=== PATIENT | male | born 1985 | race Caucasian/White ===

== ENCOUNTER 2019-09-07 16:45 | Outpatient (CLI) | payer SELFPAY ==
--- NOTE | 2019-09-07 | XR_ITS ---
WS: [id number] XR knee LT 4V [id number] REASON FOR EXAM: KNEE PAIN, LEFT FINDINGS: A metallic density is seen in the anterior aspects of the lower one third of the femur area in the soft tissue. This appears to be a metal artifact. The meniscal spaces are well preserved. The patella tibial space is normal. Patella femoral articulations normal. XR/XR knee LT 4V [id number] IMPRESSION: A metallic foreign body is seen in the soft tissue along the anterior lower one third of the femur area. The remaining knee was within normal limits.
== END 2019-09-07 16:46 | disposition home or self-care (01) ==
PROVIDERS: Family Provider Nurse Practitioner Family; PCP Nurse Practitioner Family; Visit Provider Nurse Practitioner Family
DX: M25.562 Pain in left knee (principal); M79.5 Residual foreign body in soft tissue
CPT/HCPCS: 73564

== ENCOUNTER 2019-10-06 16:37 | Outpatient (RCR) | payer SELFPAY | END 2019-11-03 23:59 | disposition home or self-care (01) | LOC: SPT 16:37 | PROVIDERS: Family Provider Nurse Practitioner Family; PCP Nurse Practitioner Family; Referring Provider Nurse Practitioner Family; Visit Provider Nurse Practitioner Family | DX: M25.562 Pain in left knee (principal) | CPT/HCPCS: 97110; 97161 ==

== ENCOUNTER 2019-11-04 06:00 | Outpatient (RCR) | payer SELFPAY | END 2019-12-04 23:59 | disposition home or self-care (01) | LOC: SPT 06:00 | PROVIDERS: Family Provider Nurse Practitioner Family; PCP Nurse Practitioner Family; Referring Provider Nurse Practitioner Family; Visit Provider Nurse Practitioner Family | DX: M25.562 Pain in left knee (principal) | CPT/HCPCS: 97110 ==

== ENCOUNTER 2019-12-05 06:00 | Outpatient (RCR) | payer OTHER, SELFPAY | END 2020-01-03 23:59 | disposition home or self-care (01) | LOC: SPT 06:00 | PROVIDERS: PCP Nurse Practitioner Family; Visit Provider Nurse Practitioner Family | DX: M25.562 Pain in left knee (principal) | CPT/HCPCS: 97110 ==

== ENCOUNTER → 2021-09-26 16:12 | Outpatient (BNVA) | payer BC, SELFPAY | PROVIDERS: Visit Provider Family Medicine Adult Medicine | DX: Z78.9 Other specified health status (principal); Z83.3 Family history of diabetes mellitus; R20.0 Anesthesia of skin | CPT/HCPCS: 80053; 83036; 84443; 85025 ==

== ENCOUNTER 2023-04-29 13:15 | Emergency (ER) | payer BC, MEDICAID, SELFPAY ==
[2023-04-29 13:52] VITALS: BP 134/82; PULSE 79; RESP 18; TEMP 36.8; O2SAT 100; BMI 26.7
--- NOTE | 2023-04-29 13:59 | ED_ITS ---
HPI - Wound/Laceration General: Chief Complaint: Wound/Laceration Stated Complaint: Cut right arm Time Seen by Provider: 04/29/23 13:58 Source: patient Mode of arrival: ambulatory Limitations: no limitations History of Present Illness: Patient is a 37-year-old male who presents to ED today with a complaint of a laceration to his right volar forearm. Patient was reportedly seen at a walk-in clinic and referred to the emergency department. Patient states he cut the forearm on glass. Last tetanus unknown. He denies numbness, tingling, loss of sensation to the extremity. Onset (ago): hour(s) Extremity Location: Right: forearm Place: home Patient tetanus UTD: No Context: accidental Associated symptoms: Reports no associated symptoms Treatments prior to arrival: bandage Review of Systems Musc: Reports: extremity pain (R forearm); Denies: neck pain, back pain, extremity swelling, joint pain, joint swelling, joint redness or joint warmth Skin/Breast: Reports: other (laceration volar mid forearm-right) Neuro: Denies: numbness in extremities or sensory changes PFS ED PFSH: Medical History Bilateral arm numbness and tingling while sleeping Cellulitis Family history of diabetes mellitus Lumbar disc disease Onychomycosis Participant in health and wellness plan Vision changes Surgical History Hx of left knee surgery Social History Smoking and tobacco/nicotine status: never used tobacco/nicotine Alcohol intake: never Substance/Drug Use: never Household members: spouse Marital status: Current occupational status: employed Physical Exam Const: COMMON NORMALS: no acute distress, average body habitus, patient oriented x3, no limitations, healthy appearing, alert and well nourished Extremity: COMMON NORMALS: full ROM and capillary refill normal GENERAL: Yes normal exam except as noted RIGHT UPPER EXTREMITY: Yes lower arm (3cm deep laceration to volar R forearm) Right lower arm: Yes inspection (laceration through muscle fascia and into muscle belly), Yes neurovascular exam (normal) and Yes other OTHER: does appear to involve flexor tendon; this is possible a flexor carpi radialis vs palmaris longus tendon Neuro: COMMON NORMALS: patient oriented x3, moves all extremities, no focal motor deficits and no sensory deficits noted SENSORIUM/ORIENTATION: Yes alert Procedures Laceration Laceration 1: Site: upper extremity Side (If applicable): right Size (cm): 3.0 Description: linear Depth: involves muscle layer and involves tendon Local Anesthetic: lidocaine 2% Amount of anesthesia used (mL): 3.0 Pre-repair: wound explored and irrigated extensively Skin layer closed with: nylon Size (cm): 3-0 Number of sutures: 5 Technique: simple, interrupted Muscle layer closed with: vicryl Size: 4-0 Number of sutures: 3 Technique: simple, interrupted Tendon layer closed with: other (not repaired as I could not visualize proximal end) Course Consultations: Consultation #1: Dr. Yanez-recommends closure and splint and she will follow up in office Vital Signs: Vital signs: Vital Signs Temperature 98.3 F 04/29/23 13:52 Pulse Rate 79 04/29/23 13:52 Respiratory Rate 16 04/29/23 14:51 Blood Pressure 134/82 04/29/23 13:52 Pulse Oximetry 100 04/29/23 13:52 Oxygen Delivery Me thod Room Air 04/29/23 13:52 MDM - Wound/Laceration Medical Decision Making XR negative for bony injury/fb. Patient's tetanus was updated. He was given 2 g IM Ancef. Discussed with Dr. Yanez and plan will be for closure, splint, and she will follow-up in office. Discussed possibly repairing tendon if possible however I was not able to visualize proximal end. Laceration was copiously irrigated and loosely closed. All radiology interpretation(s) finalized by discharge Discharge Plan Discharge Patient Disposition: Home Clinical Impression: Flexor tendon laceration of right forearm with open wound Qualifiers: Encounter type: initial encounter Qualified Code(s): S56.221A - Laceration of other flexor muscle, fascia and tendon at forearm level, right arm, initial encounter Condition: Stable Prescriptions: New hydrocodone-acetaminophen 5-325 mg tablet 1 tab PO Q6H PRN (Reason: pain) Qty: 14 0RF cephalexin 500 mg capsule 500 mg PO Q6H 7 Days Qty: 28 0RF No Action ibuprofen 200 mg tablet 600 mg PO ONCE Qty: 3 0RF Discharge Orders: Discharge ED (Routine); Ordered 04/29/23 Ordered By: Karla Mccloud Referrals: Vinnie Burr MD [Primary Care Provider] - Patient Instructions: Care For Your Stitches (DC), Laceration (DC), Tendon Laceration (ED), Opioid Safety, Pain Management Activity Restrictions/Additional Instructions: You need to stay in your splint until seen by orthopedics. Fill your antibiotics and start them immediately. You may take pain medications as needed for severe pain. Monitor for signs of infection such as redness, swelling, odorous or purulent drainage, streaking up your arm, fevers, or any other concerns you may have. Please seek medical re-evaluation immediately if these occur. Case management should reach out to you shortly to help set you up with your follow-up appointment with orthopedics for further evaluation of your possible tendon laceration. You need to return to the emergency department for severe pain, swelling, loss of sensation to your arm/fingers, severe pain with any type of movement of the digits, or any other concerns you may have. Coding Level of Care Code ED [facility] for Shelia Betancourt
--- NOTE | 2023-04-29 14:09 | XR_ITS ---
WS: [id number] Exam: XR forearm RT 2V [id number] Date/Time of Exam: 04/29/2023 2:12 PM Reason For Exam: laceration/tendon involvement No forearm fracture or dislocation. Soft tissue laceration seen along the volar aspect of the mid and proximal forearm. IMPRESSION: 1. No fracture or bony injury. 2. Soft tissue laceration involving the mid and proximal volar soft tissues.
[2023-04-29] MEDS: ondansetron 2 mg/ML SDV 2 mL 4 MG IVP (14:50)
[2023-04-29 14:51] VITALS: RESP 16
[2023-04-29] MEDS: morphine 4 mg/mL SDV 1 mL IVP (14:51)
[2023-04-29] MEDS: tetanus-dipt-pertussis 0.5 mL SDV IM (14:59)
[2023-04-29] MEDS: ceFAZolin 2,000 MG in sodium chloride 0.9% (plus) 50 ML 100 MG IV (15:00)
--- NOTE | 2023-04-29 16:49 | DCPLANNER ---
Sent message to ortho for a follow-up appt - forearm tendon laceration
== END 2023-04-29 17:30 | disposition home or self-care (01) ==
PROVIDERS: Emergency Provider Physician Assistant; PCP Family Medicine Adult Medicine
DX: S56.221A Laceration of other flexor muscle, fascia and tendon at forearm level, right arm, initial encounter (principal); W25.XXXA Contact with sharp glass, initial encounter; Z23 Encounter for immunization
CPT/HCPCS: 12032; 29125; 73090; 90471; 90715; 96365; 96366; 96375; 99284; J0690; J2270; J2405

== ENCOUNTER 2023-06-09 09:32 | Outpatient (CLI) | payer BC, MEDICAID, SELFPAY ==
--- NOTE | 2023-06-09 09:30 | MRR_ITS ---
PROCEDURE INFORMATION: Exam: MR Right Upper Extremity Other Than Joint Without Contrast, Forearm. Exam date and time: 06/09/2023 9:50 AM Age: 37 years old Clinical indication: Injury or trauma; Other: Forearm laceration; Prior surgery; Surgery date: 6+ months; Surgery type: Not specified TECHNIQUE: Imaging protocol: Magnetic resonance imaging of the right upper extremity other than joint without contrast. Exam focused on the forearm. COMPARISON: CR XR forearm RT 2V [id number] 04/29/2023 2:16 PM FINDINGS: Bones/joints: Normal alignment. No focal osseous lesion. No acute fracture. Soft tissues: There is mild subcutaneous edema along the volar aspect of the forearm without a discrete fluid collection. Mild partial tearing of the flexor carpi radialis muscle and mild to moderate partial-thickness tearing of the flexor carpi radialis tendon in the volar aspect of the mid forearm is noted in the previously noted region of laceration on the comparison radiographs over a distance of 1.4 cm on series 1001, image 12 approximately 13 cm distal to the radial head. No discrete fluid collection is identified. Mild flexor carpi radialis muscle edema is noted. MR/MR forearm RT wo con* [id number] IMPRESSION: 1. In the region of previously noted laceration along the volar aspect of the mid forearm, partial tearing of the flexor carpi radialis muscle and tendon is noted over a distance of 1.4 cm. Adjacent muscular edema is present suggestive of posttraumatic inflammatory changes or strain. 2. No acute osseous findings.
== END 2023-06-09 09:33 | disposition home or self-care (01) ==
LOC: RAD 09:32
PROVIDERS: PCP Family Medicine Adult Medicine; Visit Provider Specialist
DX: S56.221A Laceration of other flexor muscle, fascia and tendon at forearm level, right arm, initial encounter (principal); S51.801A Unspecified open wound of right forearm, initial encounter; S56.211A Strain of other flexor muscle, fascia and tendon at forearm level, right arm, initial encounter; X58.XXXA Exposure to other specified factors, initial encounter
CPT/HCPCS: 73218

== ENCOUNTER → 2023-06-15 08:44 | Outpatient (BNVA) | payer BC, MEDICAID, SELFPAY | PROVIDERS: PCP Family Medicine Adult Medicine; Visit Provider Specialist | DX: S56.221D Laceration of other flexor muscle, fascia and tendon at forearm level, right arm, subsequent encounter; S51.801D Unspecified open wound of right forearm, subsequent encounter; W25.XXXD Contact with sharp glass, subsequent encounter | CPT/HCPCS: 73090 ==

== ENCOUNTER → 2025-04-18 14:12 | Outpatient (BNVA) | payer BC, MEDICAID, SELFPAY | DX: Z76.89 Persons encountering health services in other specified circumstances (principal) | CPT/HCPCS: 80053; 80061; 85025 ==

== ENCOUNTER → 2025-04-26 10:32 | Outpatient (BNVA) | payer BC, MEDICAID, SELFPAY | PROVIDERS: Visit Provider Physician Assistant | DX: M67.432 Ganglion, left wrist (principal) | CPT/HCPCS: 73030; 73110 ==